=== PATIENT | male | born 1990 | race Caucasian/White ===

== ENCOUNTER 2020-03-13 12:48 | Outpatient (REF) | payer OTHER, SELFPAY | END 2020-03-13 12:49 | disposition home or self-care (01) | LOC: HO.LAB 12:48 | PROVIDERS: Visit Provider Internal Medicine | DX: Z20.828 Contact with and (suspected) exposure to other viral communicable diseases (principal) | CPT/HCPCS: C9803; U0003 ==

== ENCOUNTER 2024-04-06 21:04 | Emergency (ER) | payer OTHER, SELFPAY ==
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
[2024-04-06 21:10] VITALS: RESP 6; O2SAT 86
[2024-04-06 21:11] VITALS: BP 137/101; PULSE 73; RESP 12; TEMP 35.9; O2SAT 96; BMI 23.2
--- NOTE | 2024-04-06 21:19 | PC.NURSE ---
during triage become less responsive, RR dropped and O2. Non rebreathing and narcan given x 2.
--- NOTE | 2024-04-06 21:22 | ECG_ITS ---
Test Reason : AMS Blood Pressure : / mmHG Vent. Rate : 073 BPM Atrial Rate : 073 BPM P-R Int : 164 ms QRS Dur : 092 ms QT Int : 374 ms P-R-T Axes : 070 074 066 degrees QTc Int : 412 ms Normal sinus rhythm Normal ECG No previous ECGs available Referred By: Shannan Shaw Electronically Signed By:CAMRON RICHARDSON MD
[2024-04-06] MEDS: ondansetron HCL 4 MG/2 ML VIAL IVPUSH (21:24)
[2024-04-06 21:30] LABS: MANUAL DIFF FLAG NO
[2024-04-06 21:31] LABS: Basophils Percent Auto 0.3 % (0-2); Eosinophils Absolute Auto 0.1 X10*3/uL (0.0-0.4); Eosinophils Percent Auto 0.8 % (0-4); Hematocrit 43.8 % (42.0-52.0); Hemoglobin 15.4 g/dl (14.0-18.0); Imm Gran Abs Auto 0.03 X10*3/uL (0.00-0.03); Imm Gran Pct Auto 0.3 % (0.0-0.4); Lymphocytes Absolute Auto 2.6 X10*3/uL (1.2-4.9); Mean Corpuscular HGB Conc 35.2 g/dl (31.0-36.0); Mean Platelet Volume 9.6 fL (9.4-12.4); Monocytes Absolute Auto 0.5 X10*3/uL (0.1-1.2); Monocytes Percent Auto 5.7 % (2-11); Neutrophils Percent Auto 64.9 % (45-73); Platelet Count 254 X10*3/uL (160-400); Red Blood Count 4.66 X10*6/uL (4.60-5.80); Red Cell Distribution Width 11.5 % (11.0-16.0); White Blood Count 9.2 X10*3/uL (4.8-10.8)
[2024-04-06 21:45] LABS: Alanine Aminotransferase 59 U/L (0-40); Albumin Level 4.6 g/dL (3.5-5.0); Alkaline Phosphatase 72 U/L (39-117); Anion Gap 14 (12-20); Aspartate Amino Transferase 35 U/L (5-37); Bilirubin Direct < 0.2 mg/dL (0.0-0.5); Bilirubin Total 0.2 mg/dL (0.0-1.0); Blood Urea Nitrogen 9 mg/dL (9-16); Calcium 8.7 mg/dL (8.4-10.2); Carbon Dioxide 27 mmol/L (22-29); Chloride 107 mmol/L (96-108); Estimated Glomerular Filt Rate > 60; Ethanol 309 mg/dL; Glucose Random 111 mg/dL (60-115); Magnesium 2.4 mg/dL (1.6-2.6); Potassium 3.1 mmol/L (3.3-5.1); Sodium 145 mmol/L (135-145); Total Protein 8.1 g/dL (6.5-8.0)
[2024-04-06 21:46] LABS: Glucose, Whole Blood 106 mg/dL (60-115)
--- NOTE | 2024-04-06 21:49 | MHC.EDTECH ---
This tech assisted with changeover,all belongings locked in [facility] ROOM,electronics technology instructor Maribell made aware
[2024-04-06 21:51] LABS: Troponin-I High Sensitivity 4.5 ng/L (<3.5-35.0)
[2024-04-06 23:15] VITALS: BP 102/66; PULSE 84; RESP 20; TEMP 36.5; O2SAT 96
--- NOTE | 2024-04-06 23:30 | PC.NURSE ---
Assumed care of pt at 2300. PT appears to be sleeping. respirations even and unlabored. pt on diagnostic cardiac sonographer, 73bpm NSR, vss on room air. CIWA 0. Plan of care ongoing
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
[2024-04-07 02:13] VITALS: BP 97/55; PULSE 87; RESP 20; TEMP 36.6; O2SAT 99
[2024-04-07] MEDS: Potassium Chloride/H20 10 MEQ/100 ML PIGGYBACK 100 MEQ IV (03:28)
--- NOTE | 2024-04-07 03:44 | PC.NURSE ---
PT alert and oriented. Does not recall how he ended up in the hospital. BATSHEVA 10. IV meds infusing. awaiting for provider to return from procedure in another patients room to inform of BATSHEVA.
--- NOTE | 2024-04-07 03:45 | PC.NURSE ---
pt requested and provided phone to call .
--- NOTE | 2024-04-07 03:46 | PC.NURSE ---
delay in medication administration d/t understaffing and providing care to other patients.
[2024-04-07 04:12] VITALS: BP 107/65; PULSE 89; RESP 24; TEMP 36.6; O2SAT 96
[2024-04-07] MEDS: 0.9 % Sodium Chloride 1,000 ML 999 ML IV ×2 (04:35→08:12)
[2024-04-07] MEDS: Potassium Bicarbonate/Cit AC 25 MEQ TABLET.EFF 50 MEQ PO (04:35)
[2024-04-07] MEDS: LORazepam 2 MG/ML VIAL IVPUSH (04:35)
--- NOTE | 2024-04-07 04:39 | PC.NURSE ---
one time order of potassium IV ordered in error by provider. Only wanted one bag administered in total. then po
--- NOTE | 2024-04-07 06:07 | PC.NURSE ---
PT tachy 117, and CIWA 7. Notified provider- new orders placed
[2024-04-07 06:09] LABS: Appearance Urine Clear; Color Urine Yellow; Glucose Urine UA Negative (Negative); Leukocyte Esterase Urine Negative (Negative); Nitrite Urine Negative (Negative); Specific Gravity - Urine 1.015 (1.005-1.025); Urine Blood Negative (Negative); Urine Ketones Negative (Negative); Urine Protein Negative (Neg-Trace)
[2024-04-07 06:19] LABS: Amphetamine Screen Urine Not Detected (Not Detect); Barbiturates, Urine Not Detected (Not Detect); Benzodiazepines Screen Urine Not Detected (Not Detect); Buprenorphine Scr Not Detected (Not Detect); Cannabinoid Screen Urine Not Detected (Not Detect); Cocaine Screen Urine POSITIVE (Not Detect); Fentanyl, urine Not Detected (Not Detect); Methadone Screen, Urine Not Detected (Not Detect); Opiate Screen Urine Not Detected (Not Detect); Oxycodone Screen Urine Not Detected (Not Detect); Phencyclidine Screen Urine Not Detected (Not Detect)
[2024-04-07 08:00] VITALS: BP 101/56; PULSE 104; RESP 18; O2SAT 98
[2024-04-07 10:05] VITALS: BP 101/56; PULSE 100; RESP 18; O2SAT 98
[2024-04-07 10:25] VITALS: BP 102/71; PULSE 90; RESP 18; TEMP 36.7; O2SAT 98
[2024-04-07] MEDS: Naloxone HCl Nasal TAKE HOME 4 MG SPRAY 8 MG NOSTRILALT (10:25)
[2024-04-07] MEDS: Acetaminophen 325 MG TABLET 650 MG PO (10:25)
[2024-04-07 10:30] VITALS: BP 102/71; PULSE 90; RESP 18; TEMP 36.7; O2SAT 98
== END 2024-04-07 10:33 | disposition home or self-care (01) ==
PROVIDERS: Emergency Provider Emergency Medicine
DX: F10.220 Alcohol dependence with intoxication, uncomplicated (principal); Y90.8 Blood alcohol level of 240 mg/100 ml or more; T50.901A Poisoning by unspecified drugs, medicaments and biological substances, accidental (unintentional), initial encounter; F19.10 Other psychoactive substance abuse, uncomplicated; Y92.9 Unspecified place or not applicable; E87.6 Hypokalemia; R09.02 Hypoxemia; R00.0 Tachycardia, unspecified; R11.10 Vomiting, unspecified
CPT/HCPCS: 36415; 70450; 72125; 80048; 80076; 80307; 81003; 82947; 83735; 84484; 85025; 93005; 96361; 96365; 96375; 99285; J2060; J2405; J3480

== ENCOUNTER → 2024-04-06 21:22 | Outpatient (BNV) | payer SELFPAY | PROVIDERS: Emergency Provider Emergency Medicine; Visit Provider Internal Medicine Cardiovascular Disease | DX: R41.82 Altered mental status, unspecified (principal) | CPT/HCPCS: 93010 ==